=== PATIENT | female | born 2000 | race African-American/Black ===

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

== ENCOUNTER 2019-02-26 15:52 | Emergency (ER) | payer MEDICAID ==
[~2019-02-26] VITALS: Ht 175.3 cm; Wt 106.8 kg
[2019-02-26 15:55] VITALS: Ht 175.3 cm; Wt 106.8 kg
[2019-02-26] MEDS ORDERED: ULTRAM50 MG PO (19:44)
[2019-02-26 20:16] VITALS: BP 147/89
== END 2019-02-26 20:16 | disposition home or self-care (01) ==
LOC: D.ER 15:52
DX: S16.1XXA Strain of muscle, fascia and tendon at neck level, initial encounter (principal); V43.62XA Car passenger injured in collision with other type car in traffic accident, initial encounter; F17.210 Nicotine dependence, cigarettes, uncomplicated